=== PATIENT | male | born 1995 | race Caucasian/White ===

== ENCOUNTER 2016-09-22 23:51 | Emergency (ER) | payer OTHER ==
[~2016-09-22] VITALS: Ht 180.3 cm; Wt 95.3 kg
[2016-09-23 01:57] VITALS: BP 128/71
--- NOTE | 2016-09-23 01:58 | NUR ---
Mc bandage applied to left foot, written instructions for treatment provided and explained to patient. Patient discharged to home in stable conditon. Written and verbal after care instructions given. Patient verbalizes understanding of instructions. patient left with stable gait.
== END 2016-09-23 01:58 | disposition home or self-care (01) ==
LOC: ER 23:51
DX: S90.32XA Contusion of left foot, initial encounter (principal); X58.XXXA Exposure to other specified factors, initial encounter; Y93.39 Activity, other involving climbing, rappelling and jumping off; Y92.828 Other wilderness area as the place of occurrence of the external cause; Y99.8 Other external cause status
CPT/HCPCS: 73630; A4663